=== PATIENT | female | born 1995 | race Caucasian/White ===

== ENCOUNTER 2016-08-11 23:35 | Emergency (ER) | payer OTHER ==
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
--- OUTSIDE RECORDS SUMMARY | 2016-08-12 00:22 | XMS REPORT | Continuity of Care Document ---
:1995 Author Organization [employer] [place] [address] Care Team Providers Name Role Phone Unavailable Primary Care Provider Unavailable Source Comments This disclosure is being made pursuant to the Always Prepped program and maynot contain all information available regarding this patient.[facility] Active Allergies and Adverse Reactions Not on File Current Medications Be aware that medications may not be up to date as of this document. Alwaysverify current medications with the patient. Not on file Active Problems Not on file Social History Tobacco Use Types Packs/Day Years Used Date Never Assessed Plan of Care Health Maintenance Due Date Last Done Comments HPV Vaccine ([id number]) (1 of 3 - Female/Unknown 3 Dose 01/11/2004 Series) Chlamydia Screening 2009 Retired-Tetanus Vaccine Adult 01/11/2012 Pap Smear 2014 Retired-INFLUENZA VACCINE 11/14/2014 Results from Last 3 Months Not on file
--- OUTSIDE RECORDS SUMMARY | 2016-08-12 00:22 | XMS REPORT | Continuity of Care Document ---
:1995 Author Organization [facility] ([facility]) Address [address] [place] [address] Phone [phone] Care Team Providers Name Role Phone Dawson Friedman Primary Care Provider [phone] Source Comments This disclosure is being made pursuant to the Care Everywhere program, applicable federal and state laws, and may not contain all informaitonavailable regarding this patient.[facility] ([facility]) Active Allergies and Adverse Reactions Not on File Current Medications Not on file Active Problems Not on file Social History Tobacco Use Types Packs/Day Years Used Date Never Assessed Plan of Care Health Maintenance Due Date Last Done Comments Hepatitis B Vaccine (1 of 3 - Primary Series) 1993 HPV Vaccine (1 of 3 - Female/Unknown 3 Dose Series) 01/11/2004 Tdap Vaccine 01/11/2004 Cervical Cancer Screening 2011 Lipid Disorder Screening 2011 MMR Vaccine 2011 Td Vaccine 2011 Varicella Vaccine (1 of 2 - Adult - No Evidence of 2011 Immunity) Influenza Vaccine: Seasonal (#1) 10/15/2015 Results from Last 3 Months Not on file
[2016-08-12] MEDS ORDERED: AMOX TR/POTASSIUM CLAVULANATE 875 MG TABLET PO ONE (01:23)
[2016-08-12] MEDS ORDERED: KETOROLAC TROMETHAMINE 60 MG/2 ML VIAL IM ONE ×2 (01:24→01:27)
[2016-08-12] MEDS ORDERED: AMOX TR/POTASSIUM CLAVULANATE 875 MG TABLET ONE (01:27)
[2016-08-12 01:30] VITALS: BP 126/72
== END 2016-08-12 01:45 | disposition home or self-care (01) ==
LOC: ER 23:35
DX: J01.00 Acute maxillary sinusitis, unspecified (principal); F32.89 Other specified depressive episodes; Z72.0 Tobacco use